=== PATIENT | female | born 1970 | race Two or more races ===

== ENCOUNTER 2020-11-14 12:20 | Inpatient (IN) | payer MEDICAID ==
[~2020-11-14] VITALS: Ht 167.6 cm; Wt 70.3 kg
--- NOTE | 2020-11-14 12:20 | NUR ---
PT BIB DAUGHTER C/O SOB X TODAY, ASTHMA EXACERBATION. 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 WILL CONTINUE TO MONITOR.
--- NOTE | 2020-11-14 12:20 | NUR ---
IV LINE ESTABLISHED.
[2020-11-14] MEDS ORDERED: TERBUTALINE SULFATE 1 MG/ML VIAL ONE (12:22)
[2020-11-14] MEDS ORDERED: methylPREDNISolone SOD SUCC 125 MG/2ML VIAL ONE (12:22)
--- NOTE | 2020-11-14 12:22 | NUR ---
PT SEEN AND EXAMINED BY .
[2020-11-14] MEDS ORDERED: Magnesium 1GM/D5W 100ML PREMIX 200 ML IV ONE ×2 (12:25→12:30)
[2020-11-14] MEDS ORDERED: IPRATROPIUM NEB FS 0.5 MG/2.5 ML AMPUL.NEB ONE ×2 (12:26→12:39)
[2020-11-14] MEDS ORDERED: ALBUTEROL FS 2.5 MG/3 ML VIAL.NEB ONE ×2 (12:26→12:39)
[2020-11-14] MEDS ORDERED: IPRATROPIUM NEB FS 0.5 MG/2.5 ML AMPUL.NEB NEB ONE (12:30)
[2020-11-14] MEDS ORDERED: LORAZEPAM INJ 2 MG/ML VIAL IV ONE (12:30)
[2020-11-14] MEDS ORDERED: ALBUTEROL FS 2.5 MG/3 ML VIAL.NEB NEB ONE ×2 (12:30→13:00)
[2020-11-14] MEDS ORDERED: TERBUTALINE SULFATE 1 MG/ML VIAL SQ ONE (12:30)
[2020-11-14] MEDS ORDERED: methylPREDNISolone SOD SUCC 125 MG/2ML VIAL IV ONE (12:30)
--- NOTE | 2020-11-14 12:30 | NUR ---
RT AT [facility] FOR BREATHING TX.
[2020-11-14] MEDS ORDERED: LORAZEPAM INJ 2 MG/ML VIAL ONE (12:32)
[2020-11-14] MEDS ORDERED: ONDANSETRON HCL/PF 4 MG/2 ML VIAL ONE (12:40)
--- NOTE | 2020-11-14 12:50 | NUR ---
MAINTENANCE TEAM LEADER AT BEDSIDE FOR XRAY.
--- NOTE | 2020-11-14 12:57 | NUR ---
COVID SPECIMEN OBTAINED AND SENT TO LAB.
[2020-11-14 13:00] LABS: BASOPHILS # (AUTO) 0.1 /CMM (0.0-0.2); BASOPHILS % (AUTO) 0.9 % (0.0-2.0); EOSINOPHILS % (AUTO) 6.3 % (0.0-6.0); HEMATOCRIT 39 % (33-45); HEMOGLOBIN 12.7 g/dL (11.5-14.8); LYMPHOCYTES % (AUTO) 42.6 % (20.0-44.0); MEAN CORPUSCULAR HGB CONC 33 g/dl (31.0-36.0); MEAN CORPUSCULAR VOLUME 90 fL (82-100); MONOCYTES # (AUTO) 0.5 /CMM (0.1-1.30); NEUTROPHILS # (AUTO) 4.3 /CMM (1.8-8.9); NEUTROPHILS % (AUTO) 45.2 % (43.0-81.0); PLATELET COUNT (AUTO) 267 /CMM (150-450); RED BLOOD CELL COUNT(AUTO) 4.29 MIL/uL (4.0-5.2); WHITE BLOOD COUNT (AUTO) 9.4 K/uL (4.3-11.0)
[2020-11-14] MEDS ORDERED: ONDANSETRON HCL/PF - ER 4 MG/2 ML VIAL IV ONE (13:00)
[2020-11-14] MEDS ORDERED: IV NS 0.9% 1,000 ML BAG IV ONE (13:00)
--- NOTE | 2020-11-14 13:00 | NUR ---
FESTUS AVIATION TECHNICAL SYSTEMS SPECIALIST AT BEDSIDE FOR EVAL.
--- NOTE | 2020-11-14 13:11 | NUR ---
NEGATIVE RAPID COVID TEST.
--- NOTE | 2020-11-14 13:13 | NUR ---
NURSING SUP CALLED FOR QUANG BED.
[2020-11-14 13:17] LABS: ALANINE AMINOTRANSFERASE 50 U/L (12-78); ALBUMIN 4.1 g/dL (3.4-5.0); ALKALINE PHOSPHATASE 54 U/L (46-116); ASPARTATE AMINOTRANSFERASE 28 U/L (15-37); BILIRUBIN,DIRECT 0.1 mg/dL (0.0-0.2); BILIRUBIN,TOTAL 0.4 mg/dL (0.2-1.0); CALCIUM, SERUM 9.6 mg/dL (8.5-10.1); CARBON DIOXIDE 26 mmol/L (21-32); CHLORIDE 99 mmol/L (98-107); CREATININE 0.8 mg/dL (0.6-1.3); GLUCOSE 182 mg/dL (74-106); POTASSIUM 3.4 mmol/L (3.5-5.1); SODIUM SERUM 137 mmol/L (136-145); TOTAL PROTEIN, SERUM 7.5 g/dL (6.4-8.2); UREA NITROGEN, BLOOD 18 mg/dL (7-18)
--- NOTE | 2020-11-14 13:40 | NUR ---
QUANG BED 105
[2020-11-14] MEDS ORDERED: MAG HYDROX/AL HYDROX/SIMETH 30 ML UDC PO PRN (14:00)
[2020-11-14] MEDS ORDERED: IV D5/0.45 NACL 1,000 ML IV PRN ×2 (14:00→14:55)
[2020-11-14] MEDS ORDERED: ACETAMINOPHEN 325 MG TABLET PO PRN (14:00)
[2020-11-14] MEDS ORDERED: IPRATROPIUM BROMIDE 14 GM INHALER (or 12.9 GM) IH SCH (14:00)
[2020-11-14] MEDS ORDERED: ONDANSETRON HCL/PF 4 MG/2 ML VIAL IVP PRN (14:00)
[2020-11-14] MEDS ORDERED: MAGNESIUM HYDROXIDE 30 ML UDC PO PRN (14:00)
[2020-11-14] MEDS: ALBUTEROL FS 2.5 MG/0.5 ML VIAL.NEB NEB SCH ×5 (14:00→23:05)
[2020-11-14] MEDS ORDERED: Z GUARD REMEDY 2 OZ OINT TP PRN (14:00)
--- NOTE | 2020-11-14 14:03 | NUR ---
REPORT GIVEN TO LEANNE ESCOBAR FOR ELYSIA.
--- NOTE | 2020-11-14 14:10 | NUR ---
OPERATIONS AND MAINTENANCE TECHNICIAN NOTE RECEIVED REPORT FROM RN RASHID. PATIENT IS STABLE WITH HOB AT SEMI FOWLERS. NO SIGNS OF LABORED BREATHING ON ROOM AIR. LAC#18 IS PATENT, INTACT, AND HAS NO SIGNS OF INFILTRATION. SKIN IS INTACT. BED IS LOCKED IN THE LOWEST POSITION, 3 GUARD RAILS RAISED, CALL CEJA WITHIN REACH, AND ALL HOSPITAL SAFETY PRECAUTIONS ARE BEING FOLLOWED. WILL CONTINUE TO MONITOR FOR REST OF SHIFT.
[2020-11-14] MEDS ORDERED: CEFTRIAXONE 1 G in IV D5W 50 ML IV SCH (15:00)
[2020-11-14 15:09] VITALS: BP 91/39
[2020-11-14] MEDS: IV NS 0.9% 1,000 ML IV PRN (15:19)
[2020-11-14 15:31] LABS: C-REACTIVE PROTEIN 0.2 mg/dL (0.0-0.9)
[2020-11-14 16:00] VITALS: BP 91/39
[2020-11-14] MEDS: IPRATROPIUM NEB FS 0.5 MG/2.5 ML AMPUL.NEB IH SCH ×4 (16:36→23:04)
[2020-11-14] MEDS: methylPREDNISolone SOD SUCC 40 MG/ML VIAL IV SCH (16:52)
--- NOTE | 2020-11-14 17:10 | NUR ---
RN NOTE PATIENT CONCERNED WITH TAKING SOLU-MEDROL MEDICATION. SURFACING TECHNICIAN ARI MORTENSEN NOTIFIED. EXPLAINED TO PATIENT'S PURPOSE OF MEDICATION AND POTENTIAL SIDE EFFECTS OF MEDICATION. PATIENT WAS MADE WELL AWARE OF THEIR RIGHT TO REFUSE. AFTER EDUCATION, PATIENT PERMITTED ADMINISTRATION OF MEDICATION.
[2020-11-14 18:00] VITALS: BP 90/39
--- NOTE | 2020-11-14 18:45 | NUR ---
RN CLOSING NOTE PATIENT IS STABLE WITH HOB AT SEMI FOWLERS. NO SIGNS OF LABORED BREATHING ON ROOM AIR. LAC#18 IS PATENT, INTACT, AND HAS NO SIGNS OF INFILTRATION. SKIN IS INTACT. BED IS LOCKED IN THE LOWEST POSITION, 3 GUARD RAILS RAISED, CALL CEJA WITHIN REACH, AND ALL HOSPITAL SAFETY PRECAUTIONS ARE BEING FOLLOWED. ALL DUE MEDS GIVEN AND PATIENT REMAINED STABLE FOR REMAINDER OF SHIFT. WILL ENDORSE TO STUDIO OWNER RN.
--- NOTE | 2020-11-14 19:42 | NUR ---
RN NOTE PATIENT ALERT AND ORIENTED X3, ABLE TO MAKE NEEDS KNOWN. NO SOB OR ANY RESPIRATORY DISTRESS. DENIES ANY PAIN OR DISCOMFORT. TELE MONITOR ON, HR 70-80'S. WITH LEFT AC #18 RUNNING NS @ 100ML/HR, NO S/S OF ANY INFILTRATION. BED LOCKED AND IN LOWEST POSITION. CALL LIGHT WITHIN REACH. SAFETY MEASURES IN PLACE. WILL CONTINUE TO MONITOR.
[2020-11-14 20:00] VITALS: BP 92/40
[2020-11-15] VITALS: BP 89/48
[2020-11-15] MEDS: IV NS 0.9% 1,000 ML IV PRN (03:09)
[2020-11-15] MEDS: ALBUTEROL FS 2.5 MG/0.5 ML VIAL.NEB NEB SCH ×7 (03:30→23:29)
[2020-11-15] MEDS: IPRATROPIUM NEB FS 0.5 MG/2.5 ML AMPUL.NEB IH SCH ×7 (03:30→23:29)
[2020-11-15 04:00] VITALS: BP 84/37
--- NOTE | 2020-11-15 04:15 | NUR ---
PATIENT BLOOD PRESSURE 84/37 AT THIS TIME. CONTINUES ON IVF NS @100ML/HR. INFORMED SETH ROACH WITH NEW ORDERS FOR IV NS 500 BOLUS X1 NOW NOTED AND CARRIED OUT.
[2020-11-15] MEDS ORDERED: IV NS 0.9% 500 ML IV ONE ×2 (04:30→07:30)
[2020-11-15 06:13] LABS: BASOPHILS % (AUTO) 0.1 % (0.0-2.0); HEMATOCRIT 34 % (33-45); HEMOGLOBIN 11.2 g/dL (11.5-14.8); LYMPHOCYTES # (AUTO) 0.6 /CMM (0.8-4.8); LYMPHOCYTES % (AUTO) 4.1 % (20.0-44.0); MEAN CORPUSCULAR HGB CONC 33 g/dl (31.0-36.0); MEAN CORPUSCULAR VOLUME 91 fL (82-100); MONOCYTES # (AUTO) 0.5 /CMM (0.1-1.30); MONOCYTES % (AUTO) 3.2 % (2.0-12.0); NEUTROPHILS # (AUTO) 13.8 /CMM (1.8-8.9); NEUTROPHILS % (AUTO) 92.6 % (43.0-81.0); PLATELET COUNT (AUTO) 212 /CMM (150-450); RED BLOOD CELL COUNT(AUTO) 3.73 MIL/uL (4.0-5.2); WHITE BLOOD COUNT (AUTO) 14.9 K/uL (4.3-11.0)
[2020-11-15 06:33] LABS: THYROID STIMULATING HORMONE 1.633 uIU/mL (0.358-3.74)
[2020-11-15 06:36] LABS: CALCIUM, SERUM 8.2 mg/dL (8.5-10.1); CREATININE 0.7 mg/dL (0.6-1.3); MAGNESIUM 2.2 mg/dL (1.8-2.4); PHOSPHORUS 1.9 mg/dL (2.5-4.9)
--- NOTE | 2020-11-15 06:47 | NUR ---
RN NOTE PATIENT ALERT AND ORIENTED X3, ABLE TO MAKE NEEDS KNOWN. NO SOB, ON ROOM AIR, O2 SAT 96%. DENIES ANY PAIN OR DISCOMFORT. TELE MONITOR ON, HR 70-80'S. WITH LEFT AC #18 RUNNING NS @ 100ML/HR, NO S/S OF ANY INFILTRATION. ALL NEEDS ATTENDED PROMPTLY. BED LOCKED AND IN LOWEST POSITION. CALL LIGHT WITHIN REACH. SAFETY MEASURES IN PLACE. WILL ENDORSE TO ONCOMING SHIFT.
--- NOTE | 2020-11-15 07:36 | NUR ---
KITCHEN WORK SUPERVISOR NOTE PATIENT IN BED , ALL NEEDS ATTENDED , ALERT ORIENTED, ON RA NO SOB NOTED , ON TELE MONITOR HR SR HR 82, LT AC HL INTACT AND FLUSHED WELL , ON IVF ORDERED, BED IN LOWEST AND LOCKED POSITION, SAFETY MEASURE PROVIDED, CALL LIGHT WITHIN REACH
[2020-11-15 08:00] VITALS: BP 99/45
--- NOTE | 2020-11-15 08:15 | NUR ---
MARIZA PERDOMO NOTE ARI PERDOMO P AT BEDSIDE ORTHOSTATIC BP DONE SUPINE 90/44 SITTING 93/43 STANDING 89/47 AWARE OF RESULT , ALSO OK TO DO ECHO CARDIOGRAM , Addendum: 11/15/20 at 0953 by ALEXANDRA GUILLERMO RN ARI PERDOMO RN PRODUCTION AWARE THAT EARLIER BP 84/37 AND NOW 99/45 HOLD TO GIVE BOLUS TILL ORTHOSTATIC BP DONE
[2020-11-15] MEDS: PANTOPRAZOLE 40 MG VIAL IV SCH (08:59)
[2020-11-15] MEDS: methylPREDNISolone SOD SUCC 40 MG/ML VIAL IV SCH ×2 (08:59→16:48)
--- NOTE | 2020-11-15 09:50 | NUR ---
MANAGER FIRE NOTE PER ARI PERDOMO BODY FORMER OK TO DC TELE AND D\C IVF ,ORDER CARRIED OUT
--- NOTE | 2020-11-15 09:53 | NUR ---
RN NOTE PER ARI RN HOISTING MACHINE OPERATOR NO BOLUS IVF AT THIS TIME WILL F\U
--- NOTE | 2020-11-15 11:03 | NUR ---
MS RN NOTE DR ERVIN ELECTRICIAN MANAGER AT BEDSIDE STATED THAT PATIENT NEED TO STAY ONE MORE DAY WILL ORDER PREDNISONE PO , WILL CONT TO MONITOR
[2020-11-15] MEDS ORDERED: Sodium Phosphate 15 MMOL in IV NS 0.9% 245 ML IV SCH (12:00)
--- NOTE | 2020-11-15 15:00 | NUR ---
MS RN NOTE ALL NEEDS ATTENDED ,NOT IN DISTRESS
[2020-11-15 16:00] VITALS: BP 89/41
--- NOTE | 2020-11-15 19:01 | NUR ---
MS RN NOTE NEW HL ON RT FA GAG E24 INSERTED , NO SOB NOTED ,ABLE TO EAT DINNER , SELF ,NOT IN DISTRESS
--- NOTE | 2020-11-15 19:20 | NUR ---
RN OPENING NOTE RECEIVED PATIENT IN BED RESTING ALERT ORIENTED X4 VERBALLY RESPONSIVE ON ROOM AIR O2:97% ABLE TO MAKE NEEDS KNOWN,IRANIAN SPEAKER ONLY,IV SITE IS ON RIGHT HAND INTACT PATENT,CONTINENT BOWEL/BLADDER,SAFETY MEASURE IMPLEMENT KEEP CALL LIGHT WITHIN REACH,BED IN LOW POSITION AND LOCKED,CONTINUE TO MONITOR.
[2020-11-15 20:00] VITALS: BP 109/59
[2020-11-16] VITALS: BP 108/60
[2020-11-16] MEDS: IPRATROPIUM NEB FS 0.5 MG/2.5 ML AMPUL.NEB IH SCH ×3 (03:30→11:11)
[2020-11-16] MEDS: ALBUTEROL FS 2.5 MG/0.5 ML VIAL.NEB NEB SCH ×3 (03:30→11:10)
[2020-11-16 04:00] VITALS: BP 95/46
[2020-11-16 05:55] LABS: BASOPHILS % (AUTO) 0.2 % (0.0-2.0); HEMATOCRIT 32 % (33-45); HEMOGLOBIN 10.6 g/dL (11.5-14.8); LYMPHOCYTES # (AUTO) 2.5 /CMM (0.8-4.8); LYMPHOCYTES % (AUTO) 13.9 % (20.0-44.0); MEAN CORPUSCULAR HGB CONC 33 g/dl (31.0-36.0); MEAN CORPUSCULAR VOLUME 90 fL (82-100); MONOCYTES # (AUTO) 0.7 /CMM (0.1-1.30); NEUTROPHILS # (AUTO) 14.9 /CMM (1.8-8.9); NEUTROPHILS % (AUTO) 81.9 % (43.0-81.0); PLATELET COUNT (AUTO) 224 /CMM (150-450); RED BLOOD CELL COUNT(AUTO) 3.54 MIL/uL (4.0-5.2); WHITE BLOOD COUNT (AUTO) 18.2 K/uL (4.3-11.0)
[2020-11-16 06:14] LABS: CALCIUM, SERUM 8.9 mg/dL (8.5-10.1); CREATININE 0.7 mg/dL (0.6-1.3); MAGNESIUM 2.2 mg/dL (1.8-2.4); POTASSIUM 4.4 mmol/L (3.5-5.1)
--- NOTE | 2020-11-16 06:39 | NUR ---
RN CLOSING NOTE PATIENT REMANS ON ALERT ORIENTED X4 VERBALLY RESPONSIVE,KYRGYZ SPEAKER ONLY, NO SOB NOT ACUTE DISTRESS NOTED AMBULATORY,CONTINUE TO BOWEL/BLADDER KEPT CALL LIGHT WITHIN REACH,IMPLEMENTED SAFETY MEASURE,KEPT CLEAN AND DRY ALL NEEDS MET,ENDORSE NEXT COMING SHIFT FOR CONTINUATION OF CARE.
--- NOTE | 2020-11-16 07:28 | NUR ---
RECEIVED PATIENT IN BED. NO ACUTE DISTRESS NOTED. PATIENT ALERT & ORIENTED X4, MALTESE SPEAKING ONLY. PATIENT ON ROOM AIR, SATURATING WELL. PATIENT RIGHT FOREARM IV ACCESS INTACT, PATENT. PATIENT SAFETY MEASURES MAINTAINED. CALL LIGHT WITHIN REACH. WILL CONTINUE TO MONITOR.
[2020-11-16 08:00] VITALS: BP 99/62
[2020-11-16] MEDS: PANTOPRAZOLE 40 MG VIAL IV SCH (08:11)
[2020-11-16] MEDS: methylPREDNISolone SOD SUCC 40 MG/ML VIAL IV SCH (08:11)
[2020-11-16] MEDS ORDERED: FLUTICASONE/VILANTEROL 1 EACH BLST.W.DEV IH SCH (09:00)
[2020-11-16] MEDS ORDERED: predniSONE 20 MG TABLET PO SCH (09:00)
--- NOTE | 2020-11-16 09:03 | NUR ---
RT NOTE: PATIENT SAID TREATMENT MAKES HER HEART RATE PUMP FASTER. SO ONLY ATOVENT WERE GIVEN AND PATIENT RN NOTIFIED. PATIENT COMMUNICATED VIA GOOGLR SHAREBROKER.
[2020-11-16] MEDS ORDERED: ALBU18HF2 INH (11:12)
[2020-11-16] MEDS ORDERED: PRED20TA PO (11:12)
[2020-11-16] MEDS ORDERED: FLUT1BLS IH (11:12)
--- NOTE | 2020-11-16 11:18 | NUR ---
RT NOTE: ALBUTEROL NOT GIVEN DUE TO PATIENT COMPLAINING OF FAST HEART RATE. DPCTOR PELEG AND PATIENT RN WERE AWARED.
--- NOTE | 2020-11-16 12:15 | NUR ---
PATIENT DISCHARGED. PATIENT EXITCARE EDUCATION AND INSTRUCTIONS PROVIDED. PATIENT IN STABLE CONDITION. PATIENT IV LINE REMOVED. PATIENT BELONGINGS WITH THE PATIENT. PATIENT WHEELCHAIRED OUT OF HOSPITAL TO GO HOME.
== END 2020-11-16 12:15 | disposition home or self-care (01) | DRG 141 ==
LOC: ER 12:21 → TELE-TD 13:41 → TELE1 16:50 → MEDSG1 11-15 09:43
PROVIDERS: ADMIT Registered Nurse; ATTEND Registered Nurse
DX: J45.901 Unspecified asthma with (acute) exacerbation (principal); J96.01 Acute respiratory failure with hypoxia; D72.10 Eosinophilia, unspecified; F41.9 Anxiety disorder, unspecified; Z88.6 Allergy status to analgesic agent; Z88.8 Allergy status to other drugs, medicaments and biological substances; J30.2 Other seasonal allergic rhinitis; F43.9 Reaction to severe stress, unspecified; I95.9 Hypotension, unspecified
CPT/HCPCS: 36415; 71045-TC; 80048-TC; 80061-TC; 80076-TC; 82550-TC; 82728-TC; 83615-TC; 83735-TC; 83880; 84100-TC; 84443-TC; 84484-TC; 85025-TC; 85378-TC; 86140-TC; 87081-TC; 93307-TC; 94799-TC; A6403; A9563; C9113; C9803; G0378; J0696; J2060; J2405; J2920; J2930; J3105; J3475; J3490; J7030; J7050; J7060

== ENCOUNTER 2021-07-05 19:13 | Emergency (ER) | payer MEDICAID ==
[~2021-07-05] VITALS: Ht 160 cm; Wt 64.9 kg
[~2021-07-05 19:13] MED LIST: ALBU18HF2 INH; FLUT1BLS IH; PRED20TA PO
--- NOTE | 2021-07-05 19:32 | NUR ---
PT AAOX4. BIBS FOR C/O L SIDED CP, H/A AND L SIDED WEAKNESS X 1 WEEK. PLACED IN BED 10 ON MONITOR AND PULSE OX. VSS.
--- NOTE | 2021-07-05 20:17 | NUR ---
LOLA VANEGAS AT BEDSIDE FOR EVAL.
--- NOTE | 2021-07-05 20:17 | NUR ---
BLOOD DRAWN, SENT TO LAB.
[2021-07-05 20:25] LABS: BASOPHILS % (AUTO) 0.6 % (0.0-2.0); EOSINOPHILS % (AUTO) 5.3 % (0.0-6.0); HEMATOCRIT 34 % (33-45); HEMOGLOBIN 11.5 g/dL (11.5-14.8); LYMPHOCYTES # (AUTO) 1.9 K/uL (0.8-4.8); LYMPHOCYTES % (AUTO) 24.3 % (20.0-44.0); MEAN CORPUSCULAR HGB CONC 34 g/dl (31.0-36.0); MEAN CORPUSCULAR VOLUME 90 fL (82-100); MONOCYTES # (AUTO) 0.7 K/uL (0.1-1.30); MONOCYTES % (AUTO) 8.9 % (2.0-12.0); NEUTROPHILS # (AUTO) 4.8 K/uL (1.8-8.9); NEUTROPHILS % (AUTO) 60.9 % (43.0-81.0); PLATELET COUNT (AUTO) 266 K/uL (150-450); RED BLOOD CELL COUNT(AUTO) 3.82 MIL/uL (4.0-5.2); WHITE BLOOD COUNT (AUTO) 7.8 K/uL (4.3-11.0)
[2021-07-05 20:40] LABS: CALCIUM, SERUM 9.2 mg/dL (8.5-10.1); CARBON DIOXIDE 30 mmol/L (21-32); CHLORIDE 102 mmol/L (98-107); CREATININE 0.6 mg/dL (0.6-1.3); GLUCOSE 104 mg/dL (74-106); POTASSIUM 4.2 mmol/L (3.5-5.1); SODIUM SERUM 139 mmol/L (136-145); UREA NITROGEN, BLOOD 13 mg/dL (7-18)
--- NOTE | 2021-07-05 20:43 | NUR ---
US AT BEDSIDE
--- NOTE | 2021-07-05 20:48 | NUR ---
MOTION PICTURE SET WORKER AT PT'S BEDSIDE
--- NOTE | 2021-07-05 23:09 | NUR ---
Patient discharged to home in stable condition. Written and verbal after care instructions given. Patient verbalizes understanding of instruction. IV removed. Catheter intact and site benign. Pressure and 4x4 applied to site. No bleeding noted.
[2021-07-05 23:18] VITALS: BP 129/76
== END 2021-07-05 23:19 | disposition home or self-care (01) ==
LOC: ER 19:17
DX: R00.2 Palpitations (principal); N95.1 Menopausal and female climacteric states; Z20.822 Contact with and (suspected) exposure to COVID-19; M25.562 Pain in left knee; Z88.6 Allergy status to analgesic agent; J45.909 Unspecified asthma, uncomplicated
CPT/HCPCS: 36415; 71045; 73564; 80048; 84484; 85025; 85378; 87426; 93005; 93971; 99285; C9803; U0003

== ENCOUNTER 2021-10-30 02:29 | Emergency (ER) | payer MEDICAID ==
[~2021-10-30] VITALS: Ht 167.6 cm; Wt 59.0 kg
--- NOTE | 2021-10-30 02:45 | NUR ---
BIBS C/O SOB AND CONGESTION WHILE SHE WAS DYING HER HAIR AT HOME. PT STATES SHE BELIEVES THE FUMES AGGRAVATED HER ASTHMA. USED PRESCRIBED INHALER WITHOUT RELIEF. PT BREATHING UNLABORED 100% RA. LUNGS CLEAR BILATERALLY. CHANGED INTO GOWN AND PLACED ON MONITOR. RT PAGED FOR BREATHING TREATMENT.
[2021-10-30] MEDS ORDERED: ALBUTEROL FS 2.5 MG/0.5 ML VIAL.NEB ONE (02:56)
[2021-10-30] MEDS ORDERED: ALBUTEROL FS 2.5 MG/0.5 ML VIAL.NEB NEB ONE (03:00)
--- NOTE | 2021-10-30 03:07 | NUR ---
RT AT BEDSIDE FOR BREATHING TREATMENT
--- NOTE | 2021-10-30 03:19 | NUR ---
Patient discharged to home in stable condition. Written and verbal after care instructions given. Patient verbalizes understanding of instruction.
[2021-10-30 03:22] VITALS: BP 117/60
== END 2021-10-30 03:22 | disposition home or self-care (01) ==
LOC: ER 02:34
DX: J98.01 Acute bronchospasm (principal); Z88.6 Allergy status to analgesic agent; Z79.899 Other long term (current) drug therapy